=== PATIENT | male | born 1995 | race Caucasian/White ===

== ENCOUNTER 2017-11-20 13:11 | Emergency (ER) | payer SELFPAY | END 2017-11-20 14:33 | disposition home or self-care (01) | LOC: M ED 13:11 | DX: B86 Scabies (principal) | CPT/HCPCS: 99282 ==

== ENCOUNTER 2017-11-28 03:44 | Emergency (ER) | payer SELFPAY | END 2017-11-28 06:42 | disposition home or self-care (01) | LOC: M ED 03:44 | DX: L42 Pityriasis rosea (principal); F17.200 Nicotine dependence, unspecified, uncomplicated | CPT/HCPCS: 99282 ==